=== PATIENT | female | born 1960 | race Caucasian/White ===

== ENCOUNTER 2020-11-25 18:21 | Emergency (ER) | payer MEDICAID ==
[~2020-11-25] VITALS: Ht 162.6 cm; Wt 76.1 kg
[~2020-11-25 18:21] MED LIST: LIDOCAINE 2% 5 ML JELLY.ML. tube MM ONE; amiodarone 50MG/ML inj IV ONE; calcium chloride 100 MG/1 ML inj IV ONE; dextrose 50%-water 50ml dispensing syringe IV ONE; epiNEPHrine 0.1mg/ml 10ml syringe ONE; etomidate 2mg/ml inj. ONE; rocuronium 10mg/ml inj IV ONE; sod chloride 0.9% 10ml flush syringe IV ONE; sodium bicarbonate (8.4%) 1 mEq/ml syringe ONE
[2020-11-25 20:25] LABS: BASOPHILS % (AUTO) 0.4 % (0-1); EOSINOPHILS # (AUTO) 0.1 X10'3 (0-0.9); EOSINOPHILS % (AUTO) 1.2 % (0-6); HEMATOCRIT 34.8 % (35.0-45.0); HEMOGLOBIN 11.4 g/dl (12.0-16.0); LYMPHOCYTES # (AUTO) 0.7 X10'3 (1.1-4.8); LYMPHOCYTES % (AUTO) 7.1 % (21-51); MEAN CORPUSCULAR HEMOGLOBIN 30.6 PG (27.0-31.0); MEAN CORPUSCULAR HGB CONC 32.9 g/dL (33.0-36.5); MEAN CORPUSCULAR VOLUME 93.1 FL (78-98); MEAN PLATELET VOLUME 8.2 FL (7.4-10.4); MONOCYTES # (AUTO) 0.7 X10'3 (0-0.9); MONOCYTES % (AUTO) 6.7 % (2-12); NEUTROPHILS # (AUTO) 8.6 X10'3 (1.8-7.7); NEUTROPHILS % (AUTO) 84.6 % (42-75); PLATELET COUNT 272 X10'3 (140-440); RED BLOOD COUNT 3.74 X10'6 (4.20-5.60); RED CELL DISTRIBUTION WIDTH 17.1 % (11.5-14.5); WHITE BLOOD COUNT 10.1 X10'3 (4.5-11.0)
[2020-11-25 20:34] LABS: ALANINE AMINOTRANSFERASE 244 U/L (12-78); ALBUMIN 2.7 G/DL (3.4-5.0); ALBUMIN/GLOBULIN RATIO 0.6 (1.1-1.5); ALKALINE PHOSPHATASE 86 IU/L (46-116); ANION GAP 4 (8-16); ASPARTATE AMINO TRANSFERASE 93 U/L (10-37); BILIRUBIN,TOTAL 0.2 MG/DL (0.1-1.0); BLOOD UREA NITROGEN 14 MG/DL (7-18); BUN/CREATININE RATIO 21.2 (6.6-38.0); CALCIUM 8.1 MG/DL (8.5-10.1); CHLORIDE 101 MMOL/L (99-107); CREATININE 0.66 MG/DL (0.40-0.90); GLUCOSE 102 MG/DL (70-104); POTASSIUM 4.3 MMOL/L (3.5-5.1); SODIUM 139 MMOL/L (135-145); TOTAL CARBON DIOXIDE 33.9 MMOL/L (24-32); eGFR > 90 ML/MIN
[2020-11-25 20:37] LABS: TROPONIN I 0.34 NG/ML (0.0-0.05)
[2020-11-25] MEDS ORDERED: temazepam 15mg capsule PO PRN (21:00)
[2020-11-25] MEDS ORDERED: albuterol 2.5 MG/3 ML nebule CONTNEB PRN (21:00)
[2020-11-25] MEDS ORDERED: ipratropium 0.5 MG/2.5ML nebule IH ONE (21:00)
[2020-11-25] MEDS ORDERED: normal saline 1000ML IV soln IVB ONE (21:00)
[2020-11-25] MEDS ORDERED: methylPREDNISolone sod succ 125mg/2ml vial IV ONE (21:00)
[2020-11-25 21:35] LABS: ETHANOL < 0.010 GM/DL (0.0-0.010)
[2020-11-25] MEDS ORDERED: aspirin 81mg tab.chew PO ONE (21:55)
[2020-11-25] MEDS ORDERED: nitroGLYCERIN 0.4mg/hour patch TD ONE (21:55)
[2020-11-25 22:04] LABS: CLARITY,URINE CLEAR (Clear); COLOR,URINE YELLOW (Yellow); GLUCOSE, URINE NEGATIVE (Neg); KETONES,URINE NEGATIVE (Neg); LEUKOCYTE ESTERASE ,URINE NEGATIVE (Neg); NITRITES, URINE NEGATIVE (Neg); OCCULT BLOOD,URINE NEGATIVE (Neg); PROTEIN,URINE NEGATIVE (Neg)
[2020-11-25 22:13] LABS: UA COLLECTION TYPE STRAIGHT CATH
[2020-11-25 22:16] VITALS: BP 134/65
[2020-11-25 22:16] LABS: URINE AMPHETAMINE SCREEN POSITIVE (Neg); URINE BARBITUATE SCREEN NEGATIVE (Neg); URINE BENZODIAZEPINES SCREEN NEGATIVE (Neg); URINE CANNABINOID SCREEN POSITIVE (Neg); URINE COCAINE SCREEN NEGATIVE (Neg); URINE METHADONE SCREEN NEGATIVE (Neg); URINE OPIATE SCREEN NEGATIVE (Neg); URINE PHENCYCLIDINE SCREEN NEGATIVE (Neg)
[2020-11-25] MEDS ORDERED: ondansetron/PF 4mg/2ml inj IV PRN (22:35)
[2020-11-25] MEDS ORDERED: morphine 2 MG/ML inj. syringe IV PRN ×2 (22:35)
[2020-11-25] MEDS ORDERED: acetaminophen 325mg tablet PO PRN ×2 (22:35)
[2020-11-25] MEDS ORDERED: magnesium hydroxide 30ml (MOM) UD suspension PO PRN (22:35)
[2020-11-25] MEDS ORDERED: bisacodyl 10mg suppository rectal RC PRN (22:35)
[2020-11-25] MEDS ORDERED: ondansetron 4mg rapidly disintigrating tab PO PRN (22:35)
[2020-11-25] MEDS ORDERED: HYDROmorphone inj. 0.5 MG/0.5 ML DISP.SYRIN IV PRN (22:35)
[2020-11-25] MEDS ORDERED: normal saline 1000ml 1,000 ML IV SCH (22:35)
[2020-11-25] MEDS ORDERED: HYDROcodone/acetaminophen 5mg/325mg tablet PO PRN (22:35)
[2020-11-25] MEDS ORDERED: diphenhydrAMINE 50 mg/ml inj IV PRN (22:35)
[2020-11-25] MEDS ORDERED: diphenhydrAMINE 25mg capsule PO PRN (22:35)
[2020-11-25] MEDS ORDERED: acetaminophen 650mg rectal suppository RC PRN (22:35)
[2020-11-25] MEDS ORDERED: ipratropium/albuterol 3ml nebule NEB PRN (22:35)
[2020-11-25] MEDS ORDERED: mag hydrox/Alum hydrox/simeth 30ml oral suspension PO PRN (22:35)
[2020-11-25 22:51] LABS: D-DIMER 1.69 MG/L FEU (0-0.50)
[2020-11-25 22:55] LABS: MAGNESIUM 2.3 MG/DL (1.5-2.4); PHOSPHORUS 2.2 MG/DL (2.3-4.5)
[2020-11-25 22:57] LABS: HEMOGLOBIN A1C 6.7 % (4.5-6.2)
[2020-11-25 23:05] LABS: PARTIAL THROMBOPLASTIN TIME 25 SECONDS (22-32)
[2020-11-25] MEDS ORDERED: etomidate 2mg/ml inj. IV ONE (23:55)
[2020-11-25] MEDS ORDERED: FENTANYL-0.9 % NACL/PF 100 ML IV PRN (23:55)
[2020-11-25] MEDS ORDERED: midazolam 1 mg/ML 2ml injection IV PRN (23:55)
[2020-11-25] MEDS ORDERED: midazolam 1 mg/ML 2ml injection IV ONE (23:55)
[2020-11-25] MEDS ORDERED: fentaNYL/PF 50MCG/1 ML 2ML syringe IV PRN (23:55)
--- NOTE | 2020-11-26 | NUR ---
PT BEGAN VOMITING BRIGHT RED BLOOD AT RAPID RATE PT TRANSFERED TO ROOM 3 BLOOD DRAWN 2ND IV STARTED IN LFA 18 G PT BEGAN TO GET BRADYCARDIC SUCTIONED PT AND BVM RESPIRATIONS BEGAN PT HR STOPPED 000 CPR BEGAN 000 EPI 0008 CA, BICARB, D50 0009 PULSE CHECK 0011 EPI 0012 PULSE CHECK 0015 PULSE CHECK 0016 TXA DRIP 0016 BLOOD INFUSING THROUGH RAPID INFUSER 1 UNIT PRBC 0017 PULSE CHECK NO PULSE 0019 EPI 0021 V-FIB ON PULSE CHECK 0022 SHOCK DEFIB 200J 0023 AMIODARONE 300MG 0024 TIME OF CALLED 1100 CC OF BLOOD IN SUCTION CANNISTERS 2000 CC BLOOD IN VOMIT BAGS
[2020-11-26] MEDS ORDERED: succinylcholine 20mg/ml inj IV ONE (00:01)
[2020-11-26] MEDS ORDERED: tranexamic acid 1gm/0.7% sal. 100 ML IV ONE ×2 (00:05→00:10)
[2020-11-26] MEDS ORDERED: tranexamic acid 100mg/ml inj. ONE (00:07)
--- NOTE | 2020-11-26 05:14 | NUR ---
social worked paged per dr. brand to talk with family member who is at bedside
--- NOTE | 2020-11-26 05:18 | NUR ---
FAMILY HERE , SON, SO, PERSONAL BELONGINGS GIVEN TO HIM INCLUDING CELL PHONE, 2 RINGS, 2 BRACELELTS, AND PURSE AND WALLET AND CLOTHING. DR. SANTOS TALKING WITH SON. PUTTING ORDER IN FOR A SOCIAL SERVICE CONSULT TO FAMILY. PT IS CORONERS CASE.
--- NOTE | 2020-11-26 05:54 | NUR ---
pt's son and family friend were in to see the decedent, requested to speak with social media marketing analyst. order was placed by dr brand. pt's son is Luis Saeed, phone # [phone]. Call out to supervisor metal cans again to pickling machine operator pt, supervisor metal cans has not arrived yet
--- NOTE | 2020-11-26 05:57 | NUR ---
pt's son took all patient's belongings home with him.
[2020-11-26] MEDS ORDERED: docusate sod 100mg capsule PO SCH (08:00)
[2020-11-26] MEDS ORDERED: CefTRIAXone/D5W-Rocephin 1gm 50 ML IV SCH (08:00)
[2020-11-26] MEDS ORDERED: azithromycin/NS 500mg/250ml 250 ML IV SCH (08:00)
[2020-11-26] MEDS ORDERED: heparin, porcine 5000 units/ml vial SQ SCH (08:00)
== END 2020-11-26 08:04 ==
LOC: ER 21:23 → UNDOADMIN 22:34 → ED HOLD 22:34
DX: I46.9 Cardiac arrest, cause unspecified (principal); R07.89 Other chest pain; J44.1 Chronic obstructive pulmonary disease with (acute) exacerbation; C34.90 Malignant neoplasm of unspecified part of unspecified bronchus or lung; R04.2 Hemoptysis; I50.9 Heart failure, unspecified; I21.4 Non-ST elevation (NSTEMI) myocardial infarction; I11.0 Hypertensive heart disease with heart failure; F17.200 Nicotine dependence, unspecified, uncomplicated; F12.90 Cannabis use, unspecified, uncomplicated; F15.90 Other stimulant use, unspecified, uncomplicated; Z86.73 Personal history of transient ischemic attack (TIA), and cerebral infarction without residual deficits
CPT/HCPCS: 31500; 36415; 36430; 71045; 80053; 80305; 80320; 81003; 83036; 83605; 83735; 83880; 84100; 84484; 85025; 85379; 85610; 85730; 86885; 86900; 86901; 86920; 87040; 92950; 93005; 94640; 96361; 96374; 99285; J0171; J0330; J2930; J7030; P9016; 94760; G0378